=== PATIENT | female | born 2000 | race American Indian/Alaskan Native ===

== ENCOUNTER 2020-07-14 21:56 | Emergency (ER) | payer OTHER ==
[~2020-07-14] VITALS: Ht 167.6 cm; Wt 65.3 kg
--- NOTE | 2020-07-15 10:30 | EKG ---
[facility] [address] [facility] [place], [place] [address] Signed Normal sinus rhythm with sinus arrhythmia Normal ECG No previous ECGs available Confirmed by ROHIT LEE DO ([id number] on 07/15/2020 10:29:56 AM Electronically Signed By: ROHIT LEE DO 07/15/20 1030 PATIENT NAME: CONG VALENCIA [place] Electrocardiogram DATE OF : [birth year] PHYSICIAN: ROHIT LEE DO REPORT #: [id number] REPORT IS CONFIDENTIAL AND NOT TO BE RELEASED WITHOUT AUTHORIZATION
== END 2020-07-15 00:32 | disposition home or self-care (01) ==
LOC: ED 21:56
DX: R00.2 Palpitations (principal)
CPT/HCPCS: 71045; 80053; 81001; 83735; 84443; 84484; 85025; 93005; 93010; 93225; 93226; 93227; 99285-25

== ENCOUNTER 2021-05-07 17:29 | Emergency (ER) | payer OTHER ==
[~2021-05-07] VITALS: Ht 167.6 cm; Wt 59.0 kg
[2021-05-07] MEDS ORDERED: DOXYCYCLINE HY100 MG PO (18:44)
[2021-05-07] MEDS ORDERED: ZOFRAN4 MG PO (18:44)
== END 2021-05-07 19:31 | disposition home or self-care (01) ==
LOC: ED 17:29
DX: J02.9 Acute pharyngitis, unspecified (principal)
CPT/HCPCS: 96372; 99282; J1885

== ENCOUNTER 2021-07-13 00:28 | Emergency (ER) | payer OTHER ==
[~2021-07-13] VITALS: Ht 167.6 cm; Wt 56.7 kg
[~2021-07-13 00:28] MED LIST: DOXYCYCLINE HY100 MG PO; ZOFRAN4 MG PO
--- NOTE | 2021-07-13 11:16 | EKG ---
[facility] [address] [facility] [place], [place] [address] Signed Normal sinus rhythm Normal ECG When compared with ECG of 14-JUL-2020 22:09, No significant change was found Confirmed by LIA CARTER MD ([id number] on 07/13/2021 11:16:35 AM Electronically Signed By: LIA CARTER MD 07/13/21 1116 PATIENT NAME: CONG VALENCIA [place] Electrocardiogram DATE OF : [birth year] PHYSICIAN: LIA CARTER MD REPORT #: [id number] REPORT IS CONFIDENTIAL AND NOT TO BE RELEASED WITHOUT AUTHORIZATION
== END 2021-07-13 01:24 | disposition home or self-care (01) ==
LOC: ED 00:28
DX: R07.89 Other chest pain (principal); Z87.891 Personal history of nicotine dependence
CPT/HCPCS: 71046; 93005; 93010; 99285-25

== ENCOUNTER 2021-11-28 06:07 | Emergency (ER) | payer OTHER ==
[~2021-11-28] VITALS: Ht 170.2 cm; Wt 59.0 kg
[2021-11-28] MEDS ORDERED: CEPHALEXIN500 MG PO (06:56)
== END 2021-11-28 07:19 | disposition home or self-care (01) ==
LOC: ED 06:07
DX: N39.0 Urinary tract infection, site not specified (principal); Z87.891 Personal history of nicotine dependence
CPT/HCPCS: 81001; 99283; A9270

== ENCOUNTER 2024-03-12 14:31 | Emergency (ER) | payer OTHER ==
[~2024-03-12] VITALS: Ht 170.2 cm; Wt 78.7 kg
[~2024-03-12 14:31] MED LIST changes: +CEPHALEXIN500 MG PO
[2024-03-12 14:54] VITALS: BP 118/74
== END 2024-03-12 14:54 | disposition home or self-care (01) ==
LOC: ED 14:31
DX: M76.61 Achilles tendinitis, right leg (principal); Z87.891 Personal history of nicotine dependence
CPT/HCPCS: 99283

== ENCOUNTER 2024-06-01 17:31 | Emergency (ER) | payer OTHER ==
[~2024-06-01] VITALS: Ht 170.2 cm; Wt 78.1 kg
[2024-06-01 19:19] LABS: INFLUENZA B NAA NEGATIVE (NEGATIVE); RESPIRATORY SYNCYTIAL VIR NAA NEGATIVE (NEGATIVE)
[2024-06-01] MEDS ORDERED: AMOX TR-K CLV1 EAC1 PO (19:52)
[2024-06-01] MEDS ORDERED: AMOXICILLIN/CLAVULANATE K 875 MG HOME.PACK PO ONE (20:00)
[2024-06-01 20:11] VITALS: BP 106/76
== END 2024-06-01 20:11 | disposition home or self-care (01) ==
LOC: ED 17:31
PROVIDERS: Family Medicine
DX: J32.9 Chronic sinusitis, unspecified (principal); Z87.891 Personal history of nicotine dependence; Z11.52 Encounter for screening for COVID-19
CPT/HCPCS: 87502; 87651; 99283; U0002

== ENCOUNTER 2025-08-06 23:07 | Emergency (ER) | payer OTHER ==
[~2025-08-06] VITALS: Ht 170.2 cm; Wt 78.0 kg
[~2025-08-06 23:07] MED LIST changes: +AMOX TR-K CLV1 EAC1 PO
[2025-08-06] MEDS ORDERED: MECLIZINE HCL 25 MG TAB PO ONE (23:45)
[2025-08-06] MEDS ORDERED: ANTIVERT25 M1 PO (23:58)
[2025-08-07 00:17] VITALS: BP 122/83
== END 2025-08-07 00:18 | disposition home or self-care (01) ==
LOC: ED 23:07
DX: R42 Dizziness and giddiness (principal); J06.9 Acute upper respiratory infection, unspecified; Z87.891 Personal history of nicotine dependence
CPT/HCPCS: 99283; A9270